=== PATIENT | female | born 1970 | race Caucasian/White ===

== ENCOUNTER 2018-02-04 00:37 | Outpatient (CLI) | payer MEDICAID, SELFPAY ==
--- NOTE | 2018-02-04 09:59 | DI.RAD_ITS ---
SYMPTOMS/DIAGNOSIS: LT HIP PAIN, M25.552, LT KNEE PAIN, M25.562 LEFT HIP AND PELVIS: Two views. No priors. Moderately severe narrowing of the superior joint space of the left hip is noted. Mild subchondral sclerosis and acetabulum scarring is also noted. The bones are intact and normally mineralized. There are mild degenerative changes of the sacroiliac joints bilaterally. The symphysis pubis is unremarkable. The soft tissues are unremarkable. IMPRESSION: Moderate degenerative changes of the left hip. LEFT KNEE: Three views. No priors. No bone or joint abnormality is identified. The soft tissues are unremarkable. IMPRESSION: Negative left knee.
== END 2018-02-04 00:57 ==
PROVIDERS: PCP Nurse Practitioner; Visit Provider Nurse Practitioner
DX: M25.552 Pain in left hip (principal); M16.12 Unilateral primary osteoarthritis, left hip; M25.562 Pain in left knee
CPT/HCPCS: 73562; 73502

== ENCOUNTER 2019-05-22 16:12 | Outpatient (REF) | payer MEDICAID, SELFPAY ==
--- NOTE | 2019-05-22 15:00 | PAPFT_PTH ---
PATIENT: Edward Stafford LOC: NCN #:[id number] AGE/SX: 48/F ROOM: RE05/22/[address]: Tiffany Mendoza : 1970 BED: DIS: 05/22/2019 SPEC #: [id number] RECD: 05/25/19 12:57 STATUS: KALEB RELeigh #: [id number] LAURA: 05/22/19 15:[address]: Tiffany Mendoza DEPT: [facility] Cytology RECD BY: Narda Sifuentes ENTERED: 05/25/19 12:57 SP TYPE: PAPFT OTHR DR: Nuzhat Johnson Tissues: 1 - CX/ENDOCX FOR PAP SMEARS Procedures: PAP THIN PREP/UVM Screening HPV DNA PROBE Comments: [id number]
== END 2019-05-22 16:32 ==
LOC: NCHCN 16:12
PROVIDERS: PCP Nurse Practitioner; Visit Provider Family Medicine
DX: Z12.4 Encounter for screening for malignant neoplasm of cervix (principal); Z01.419 Encounter for gynecological examination (general) (routine) without abnormal findings; Z00.00 Encounter for general adult medical examination without abnormal findings
CPT/HCPCS: 88142; 87624

== ENCOUNTER 2019-09-23 02:14 | Outpatient (CLI) | payer MEDICAID, SELFPAY ==
--- NOTE | 2019-09-23 15:38 | DI.MAMMO_ITS ---
EXAM: MAMMO SCREENING CLINICAL HISTORY: SCREENING Z12.31 TECHNIQUE: Mammograms were interpreted according to the usual protocol including computer analysis w [employer] CAD system, tomosynthesis and C-view imaging. COMPARISON: 2017 FINDINGS: The breasts are composed of heterogeneously dense fibroglandular densities, Breast Density category C . No suspicious masses or suspicious microcalcifications are seen. A biopsy marker clip is noted in th e upper outer quadrant of the left breast. There is a stable circumscribed nodule in the upper outer quadrant the left breast . No skin thickening or abnormal axillary lymph nodes are seen. There has been no significant change from prior exams. IMPRESSION: BI-RADS Category 2 - Benign Findings. Yearly screening mammography is recommended. Breast Density Category C, heterogeneously dense tissue which decreases the sensitivity of the mammog elliot. The mammogram demonstrates the patient's breast tissue is dense. Dense breast tissue is very common a nd is not abnormal but dense breast tissue can make it harder to find cancer on a mammogram. Also, de nse breast tissue may increase breast cancer risk. This information about the result of the mammogram report was provided to the patient to raise their awareness. Use this report when you speak with the patient about their risks for breast cancer, which includes their family history. At that time, you may recommend additional screening tests (Ultrasound or MRI) as they might be useful based on their r isk. A negative radiographic report should not delay biopsy if a dominant or clinically suspicious mass is present. Up to ten percent of cancers are not identified on mammography. A negative report may reinforce clinical impression. Adenosis and dense breasts may obscure an underlying neoplasm. False positive reports average 6 to 10%.
== END 2019-09-23 02:34 ==
PROVIDERS: PCP Nurse Practitioner; Visit Provider Family Medicine
DX: Z12.31 Encounter for screening mammogram for malignant neoplasm of breast (principal)
CPT/HCPCS: 77063; 77067

== ENCOUNTER → 2022-02-19 03:23 | Outpatient (CLI) | payer MEDICARE, MEDICAID, SELFPAY ==
--- NOTE | 2022-02-19 15:45 | DI.MAMMO_ITS ---
Exam(s) MAMMO SCREENING EXAM: MAMMO SCREENING CLINICAL HISTORY: SCREENING, Z12.31 TECHNIQUE: Mammograms were interpreted according to the usual protocol including computer analysis w [employer] CAD system, tomosynthesis and C-view imaging. COMPARISON: 2016 and 2019 FINDINGS: The breasts are composed of heterogeneously dense fibroglandular densities, Breast Density category C . Smoothly marginated nodule is again noted in the upper outer posterior left breast. There is an ghanshyam cent biopsy marker clip. No suspicious masses or suspicious microcalcifications are seen. No skin thickening or abnormal axillary lymph nodes are seen. There has been no significant change from prior exams. IMPRESSION: BI-RADS Cat 2 - Benign Findings. Yearly screening mammography is recommended. Breast Density Category C, heterogeneously Dense. The mammogram demonstrates the patient's breast tissue is dense. Dense breast tissue is very common a nd is not abnormal but dense breast tissue can make it harder to find cancer on a mammogram. Also, de nse breast tissue may increase breast cancer risk. This information about the result of the mammogram report was provided to the patient to raise their awareness. Use this report when you speak with the patient about their risks for breast cancer, which includes their family history. At that time, you may recommend additional screening tests (Ultrasound or MRI) as they might be useful based on their r isk. A negative radiographic report should not delay biopsy if a dominant or clinically suspicious mass is present. Up to ten percent of cancers are not identified on mammography. A negative report may reinforce clinical impression. Adenosis and dense breasts may obscure an underlying neoplasm. False positive reports average 6 to 10%.
== END ==
PROVIDERS: PCP Nurse Practitioner; Visit Provider Family Medicine
DX: Z12.31 Encounter for screening mammogram for malignant neoplasm of breast (principal); R92.8 Other abnormal and inconclusive findings on diagnostic imaging of breast
CPT/HCPCS: 77063; 77067

== ENCOUNTER 2022-02-26 15:01 | Outpatient (CLI) | payer MEDICARE, MEDICAID, SELFPAY ==
--- NOTE | 2022-02-26 14:51 | DI.RAD_ITS ---
Exam(s) XR HIP LT COMPLETE AP PELVIS EXAM: XR HIP LT COMPLETE AP PELVIS INDICATION: L hip pain. COMPARISON: CR XR hip LT complete AP pelvis from 02/04/2018 TECHNIQUE: 2D digital imaging was performed. Two views. FINDINGS: There is severe narrowing of the left hip joint space which appears slightly worsened when compared w ith the previous exam. There is periarticular spurring and sclerosis. The right hip joint space is well maintained. IMPRESSION: Severe degenerative changes of the left hip. DATA REPOSITORY: RADIATION DOSE DELIVERED:
== END 2022-02-26 15:02 | disposition home or self-care (01) ==
LOC: DIORS 15:02
PROVIDERS: PCP Nurse Practitioner Family; Referring Provider Nurse Practitioner Family; Visit Provider Physician Assistant
DX: M16.12 Unilateral primary osteoarthritis, left hip
CPT/HCPCS: 99203; 73502

== ENCOUNTER → 2022-03-08 03:12 | Outpatient (CLI) | payer MEDICARE, MEDICAID, SELFPAY ==
--- NOTE | 2022-03-08 07:45 | DI.RAD_ITS ---
Exam(s) RF JOINT INJECTION FLUORO GUID EXAM: RF JOINT INJECTION FLUORO GUID CLINICAL HISTORY: L HIP INJ UNDER FLUORO, primary OA lt hip, M16.12 TECHNIQUE: 2D and realtime digital imaging was performed. COMPARISON: No exams were available for comparison FINDINGS: Fluoroscopy is utilized by Dr. Kidd during left hip injection. Hard copy confirms intra-articula r injection. IMPRESSION: RADIATION DOSE DELIVERED: Ka,r=5.21 mGy Total DLP
[2022-03-08] MEDS: methylPREDNISolone ACETATE 80 MG/ML VIAL IM (15:05)
[2022-03-08] MEDS: Bupivacaine 0.5% Pres-Free 10 ML VIAL 8 ML IJ (15:06)
--- NOTE | 2022-03-08 21:27 | W.PROCNOTE ---
Date of service: 03/08/22 Time of Service: 14:40 Procedure Note Date of procedure: 03/08/22 Procedure: Left Hip Injection with Fluoroscopic Guidance Surgeon/Proceduralist/Physician: Michael Kidd Procedure Diagnosis: Left Hip Osteoarthritis Procedure Indications: Edward has had persistent pain of the LEFT hip and groin. Noninvasive measures have been tried. To serve as both diagnostic and therapeutic, an injection under fluoroscopy was recommended. I had discussed the risks of the procedure and the patient elected to proceed. Procedure Description: Edward was greeted in the flouroscopy room. The correct side was identified and the consent was reviewed with the patient and signed. The patient was then placed in the supine position on the fluoroscopy table. The LEFT hip was then prepped with Chloraprep. The anterolateral injection starting point was identiifed by bony landmarks and fluoroscopy. The skin and soft tissue in the tract of the injection was anesthetized with 1% Lidocaine. A spinal needle was then inserted deep into the hip joint at the level of the lateral femoral neck under fluoroscopic guidance. A small amount of Omnipaque solution was injected to confirm intraarticular placement. Once confirmed, the hip was injected with 5cc of 0.5% Bupivicaine and 80mg of Depo-Medrol. A bandaid was placed on the injection site. The patient tolerated the procedure well and noted improvement in pre-injection pain.
== END ==
PROVIDERS: PCP Family Medicine; Visit Provider Student in an Organized Health Care Education/Training Program
DX: M16.12 Unilateral primary osteoarthritis, left hip (principal); M25.552 Pain in left hip
CPT/HCPCS: 20610; 77002; J1040

== ENCOUNTER 2022-05-28 02:32 | Outpatient (CLI) | payer MEDICARE, MEDICAID, SELFPAY ==
[2022-05-28 14:42] LABS: HCT 41.3 % (36.0-46.0); HGB 13.9 g/dL (11.2-15.7); MCH 30.5 pg (27.0-33.0); MCHC 33.7 % (32.0-36.0); MCV 91 fL (80-95); MPV 9.6 fL (8.0-11.0); Platelet Count 287 10^3/uL (130-400); RBC 4.55 10^6/uL (3.93-5.22); RDW 13.2 % (11.7-14.6); RDW-SD 44.6 fL; WBC 6.81 10^3/uL (4.4-10.8)
[2022-05-28 15:18] LABS: Anion Gap 7.1 mmol/L (3-11); BUN 13 mg/dL (7-18); CO2 30.9 mmol/L (21.0-32.0); CREATININE 0.9 mg/dL (0.55-1.02); Calcium 9.6 mg/dL (8.5-10.1); Chloride 103 mmol/L (98-107); Estimated GFR 77.88 (mL/min/1.73m2); Glucose 97 mg/dL (74-106); Potassium 3.9 mmol/L (3.5-5.1); Sodium 141 mmol/L (136-145)
== END 2022-05-28 02:33 | disposition home or self-care (01) ==
LOC: LBO 02:33
PROVIDERS: PCP Family Medicine; Visit Provider Student in an Organized Health Care Education/Training Program
DX: M16.12 Unilateral primary osteoarthritis, left hip (principal); Z01.818 Encounter for other preprocedural examination
CPT/HCPCS: 36415; 80048; 85027

== ENCOUNTER 2022-06-08 05:52 | Day surgery (SDC) | payer MEDICARE, MEDICAID, SELFPAY ==
[2022-06-08] VITALS (9 sets, daily range): BP systolic 86–146; BP diastolic 32–75; PULSE 59–71; RESP 12–19; TEMP 36.6; O2SAT 97–100; BMI 27.1
--- NOTE | 2022-06-08 06:22 | ANES.PREOP_ITS ---
General Info Date of Service Date Performed: 06/08/22 Height: 5 ft 3 in Weight: 69.4 kg Body Mass Index (BMI): 27.1 Surgical Procedure: Operation Date: 06/08/22 07:50 Proposed Procedure Side Surgeon p Hip Total Hip Anterior Left Michael Kidd MD Meds Allergies and Home Medications Allergies Allergy/AdvReac Type Severity Reaction Status Date / Time meperidine HCl [From Demerol] Allergy rash up Verified 06/08/22 06:15 vein Home Medication Medication Instructions Recorded acetaminophen 500 mg tablet 1,000 mg PO Q8H PRN pain #90 tabs 06/07/22 aspirin 81 mg tablet,delayed 81 mg PO BID #60 tabs 06/07/22 release celecoxib 200 mg capsule 200 mg PO BID PRN pain #60 caps 06/07/22 dexamethasone 4 mg tablet 4 mg PO DAILY #2 tabs 06/07/22 oxycodone 5 mg tablet 5 mg PO Q4H #12 tabs 06/07/22 pantoprazole 40 mg tablet,delayed 40 mg PO DAILY #30 tabs 06/07/22 release Current Visit Medications: Current Medications Generic Name Dose Route Start Last Admin Trade Name Freq PRN Reason Stop Dose Admin Acetaminophen 1,000 mg 06/08/22 06:00 Acetaminophen 500 Mg Tab PO 06/08/22 16:00 PREOP HERNANDEZ Celecoxib 400 mg 06/08/22 06:00 Celecoxib 200 Mg Cap PO 06/08/22 16:00 PREOP HERNANDEZ Tranexamic Acid 1,000 mg/ 60 mls @ 360 mls/hr 06/08/22 06:00 Sodium Chloride IV 06/08/22 16:00 PREOP HERNANDEZ Ringer's Solution 1,000 mls @ 80 mls/hr 06/08/22 06:00 IV 06/08/22 23:59 INFUSION HERNANDEZ Cefazolin Sodium/Dextrose 2 gm in 50 mls @ 100 mls/hr 06/08/22 06:00 Ancef Duplex IVPB 06/08/22 23:59 PREOP HERNANDEZ IV Miscellaneous Supplies 1 each 06/08/22 06:00 Iv Access IV 06/08/22 23:59 DIRECTED HERNANDEZ Sodium Chloride 0 ml 06/08/22 06:00 Normal Saline Flush 10 Ml Syr IV 06/08/22 23:59 PRN PRN Sodium Chloride 0 ml 06/08/22 06:00 Normal Saline 10 Ml Vial IJ 06/08/22 23:59 DIRECTED PRN Sterile Water 0 ml 06/08/22 06:00 Water,Injection,Sterile 10 Ml Vial IJ 06/08/22 23:59 DIRECTED PRN PFSH Active Problems Active Problems: Problem Status Onset Code Abnormal auditory perception of both ears 04/25/15 H93.293 Sensorineural hearing loss of combined sites, bilateral 01/25/15 H90.3 Asymmetrical sensorineural hearing loss of both ears 04/14/13 H90.3 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 Primary osteoarthritis of left hip M16.12 Medical History Medical History Hearing impairment Left breast mass Retinitis pigmentosa Usher syndrome Surgical History Surgical History (Updated 06/08/22 @ 06:14 by Andres Lincoln) Biopsy of breast (02/15/17) left, ultrasound guided, nodular dense fibrosis History of tubal ligation Tobacco Smoking/Tobacco Use Status: Never Alcohol Alcohol Intake: current Substance Use Substance use: Occasionally Substance use type: marijuana Vital Signs and Lab Results Vital Signs Most Recent Vital Signs in EMR: Temp Pulse Resp BP Pulse Ox 36.6 C 71 16 126/66 100 06/08/22 06:16 06/08/22 06:16 06/08/22 06:16 06/08/22 06:16 06/08/22 06:16 Lab Results Blood Type / Crossmatch: No Data to Display Complete Blood Count: White Blood Count 6.81 10^3/uL (4.4-10.8) 05/28/22 14:30 Red Blood Count 4.55 10^6/uL (3.93-5.22) 05/28/22 14:30 Hemoglobin 13.9 g/dL (11.2-15.7) 05/28/22 14:30 Hematocrit 41.3 % (36.0-46.0) 05/28/22 14:30 Platelet Count 287 10^3/uL (130-400) 05/28/22 14:30 Complete Metabolic Panel: Sodium 141 mmol/L (136-145) 05/28/22 14:30 Potassium 3.9 mmol/L (3.5-5.1) 05/28/22 14:30 Chloride 103 mmol/L (98-107) 05/28/22 14:30 Carbon Dioxide 30.9 mmol/L (21.0-32.0) 05/28/22 14:30 BUN 13 mg/dL (7-18) 05/28/22 14:30 Creatinine 0.9 mg/dL (0.55-1.02) 05/28/22 14:30 Est GFR (CKD-EPI 2020) 77.88 (mL/min/1.73m2) 05/28/22 14:30 Calcium 9.6 mg/dL (8.5-10.1) 05/28/22 14:30 Glucose 97 mg/dL (74-106) 05/28/22 14:30 Liver Function Panel: No Data to Display Coagulation Panel: 2 No Data to Display Cardiac Panel: No Data to Display Arterial Blood Gas: No Data to Display Venous Blood Gas: No Data to Display Pancreas Panel: No Data to Display Thyroid Panel: No Data to Display Infectious Disease: No Data to Display Blood Cultures: No Data to Display Toxicology Panel: No Data to Display Panel: No Data to Display Anesthesia Assessment and Plan Anesthesia History Personal History: No History of Anesthesia Complications Family History: No Family History of Anesthesia Complications Exercise Tolerance Exercise Tolerance: Metabolic Equivalents>4 Cardiac & Pulmonary Exam Cardiac Exam: Normal S1/S2 Heart Sounds Pulmonary Exam: Clear Bilateral Breath Sounds Implantable Cardiac Device Does patient have a Pacemaker or an ICD?: No Airway Exam Known Difficult Airway: No Mallampati Class: 1 Mouth Opening: Normal (> 3cm) Thyromental Distance: Greater than 3 cm Neck Range of Motion: Full ROM Neck Circumference: Normal Teeth Condition: Normal Dentition ASA Classification ASA Score: ASA 2 Emergency Case?: No NPO Status NPO Status: NPO Clears >2 hours, Solids >8 hours Status Status: Not Relevant due to Medical History Anesthesia Plan Resuscitation Status: Full Code Anesthesia Technique: Spinal Anesthesia Airway Planned: Natural Airway Monitors Used: Standard Monitors Preoperative Comments:: 51 yo female for JER. Sig PMHx: Usher syndrome, never smoker tobacco, occ cannabis/etoh, denies major. Plan: spinal.
[2022-06-08] MEDS: Acetaminophen 500 MG TAB 1000 MG PO (06:39)
[2022-06-08] MEDS: Celecoxib 200 MG CAP 400 MG PO (06:39)
[2022-06-08] MEDS: Lactated Ringers 1,000 ML 80 ML IV (06:51)
--- NOTE | 2022-06-08 07:14 | W.PM.DSUDISC ---
Date of service: 06/08/22 Time of Service: 07:13 Discharge Plan Disposition Patient Disposition: Home Condition: Good Discharge Details Reason For Visit: Left Hip DJD Attending Provider: Michael Kidd Primary Care Provider: Tiffany Mendoza Home Meds and New Rx's Prescriptions: New acetaminophen 500 mg tablet 1,000 mg PO Q8H PRN (Reason: pain) Qty: 90 3RF aspirin 81 mg tablet,delayed release (DR/EC) 81 mg PO BID Qty: 60 0RF celecoxib 200 mg capsule 200 mg PO BID PRN (Reason: pain) Qty: 60 1RF pantoprazole 40 mg tablet,delayed release (DR/EC) 40 mg PO DAILY Qty: 30 0RF dexamethasone 4 mg tablet 4 mg PO DAILY Qty: 2 0RF Rx Instructions: Starting Post-Operative Day #1 (Day after surgery) oxycodone 5 mg tablet 5 mg PO Q4H Qty: 12 0RF Discharge Instructions Additional Instructions: Total Hip Discharge Instructions Activity: The most important activity is to walk. You should try to take short walks a few times a day. You have no restrictions on movement or positioning, but do not try to force what you do. You will find some stiffness and weakness with hip flexion (lifting your knee). Do not try to strengthen this too early, continue to practice walking and stairs and this will come. - Outpatient physical therapy can be helpful to help return you to a normal gait and improve your flexibility and strength. This can start around 2 weeks. For some patients, it?s not necessary. Usually this is determined at the time of discharge or at the first post-operative visit. - You should wear the AARON hose on both legs for 2 weeks. Dressing: Keep the surgical dressing in place for at least one week. After the first week it may be removed and replace with light gauze and tape or nothing. It may get wet after 3 days but avoid soaking the dressing. If it gets wet, just lightly pat dry. It is important to always keep some gauze between skin folds, especially when you are sitting. Spend some time with the wound exposed when you are lying flat as the incision does wrinkle onto itself. Medications: - You should take Tylenol and an anti-inflammatory Celebrex as your primary pain control medications. If the Celebrex is too expensive or not covered, please call the office for another alternative (Advil/Ibuprofen or Naproxen/Aleve). - You have been prescribed a stronger pain medication Oxycodone for breakthrough pain, take as needed as prescribed. - You have also been prescribed a stomach acid reduction agent Pantoprozole to help reduce stomach acid and reflux. - You have also been prescribed Decadron to help with post-operative nausea and pain. You will take this for two days starting tomorrow. - You will be taking Aspirin 81mg twice a day for DVT prevention unless instructed otherwise. - If you have constipation you should take Colace or Miralax (both [id number]). It takes most people 3-4 days to have a bowel movement. Follow-up: 2 weeks If you have any acute concerns or questions, please do not hesitate to contact the office at [phone]. You may contact Dr. Kidd with any questions after hours through the hospital at [phone] or on his cell phone at [phone]. Equipment/Supplies: Walker Activity:: Activity as Tolerated Remove Dressings/Wound Care:: Do Not Remove Shower/Bathe:: Cover Diet:: As Tolerated Discharge Orders Discharge Orders: Discharge Order (Routine); Ordered 06/08/22 Ordered By: Michael Kidd DS: Diagnosis Discharge Diagnosis (1) Primary osteoarthritis of left hip: Status: Acute
[2022-06-08] MEDS: ceFAZolin 2 GM/50 ML BAG IVPB (07:30)
--- NOTE | 2022-06-08 08:37 | DI.RAD_ITS ---
Exam(s) XR HIP LT IN OR EXAM: XR HIP LT IN OR CLINICAL HISTORY: total hip. TECHNIQUE: 2D digital imaging was performed. COMPARISON: No exams were available for comparison FINDINGS: Fluoroscopy was provided during hip arthroplasty. See procedure report for details. Total fluoroscopy time 26.1 seconds IMPRESSION: Radiation exposure index/cumulative radiation dose: gene Rondon= 2.0108 mGy DATA REPOSITORY: RADIATION DOSE DELIVERED:
[2022-06-08] MEDS: ePHEDrine 25 MG/5 ML Syringe IM (09:40)
[2022-06-08] MEDS: HYDROmorphone 2 MG/ML SYR IVP ×2 (09:55→10:05)
--- NOTE | 2022-06-08 10:26 | W.ANESPOSTOP ---
Postoperative Evaluation Date, Time and Location Date Performed: 06/08/22 Time Performed: 10:26 Patient Location: PACU Vital Signs Most Recent Imported Vital Signs: Most Recent Vital Signs Temp Pulse Resp BP Pulse Ox 36.6 C 60 13 111/59 L 100 06/08/22 10:23 06/08/22 10:23 06/08/22 10:23 06/08/22 10:06/08/22 10:23 Pain Score Most Recent Pain Score: Most Recent Pain Score Pain Level 2 06/08/22 10:23 Assessment Mental Status: Awake (Alert & Oriented to Patient Baseline) Airway and Respiratory Function: Patent airway with normal (patient baseline) respiratory exam Cardiovascular Function: Hemodynamically Stable (receiving intermittent ephedrine. ) Hydration Status: Adequately Hydrated Nausea & Vomiting: No Nausea or Vomiting Pain: Pain is tolerable per patient Peripheral Nerve Block: Patient did not receive a nerve block
--- NOTE | 2022-06-08 14:09 | IN_ITS ---
PT Notes Visit Reasons: Left Hip DJD Inpatient Physical Therapy Evaluation Date: June 08, 2022 Referring Doctor: Dr. Michael Kidd PT Orders: PT CONSULT: Status post left total hip arthroplasty Precautions: Weightbearing as tolerated Patient Profile/Admitting Diagnosis: Patient is a 51-year-old female referred for evaluation and treatment planning status post left total hip arthroplasty performed on this date by Dr. Michael Kidd. Patient states she came out of anesthesia well. Is holding up well with regards to pain management. Is slated to be discharged home. Her daughter will be picking her up. She states that her daughter and grandson live with her. Her daughter will be helping her over the next couple weeks recovering from her hip replacement. PMHX: PFSH All Active Problems?(Updated 02/26/22 @ 15:08 by LINO Salguero) Primary osteoarthritis of left hip (Acute) Pigmentary retinal dystrophy (Acute) Impairment of speech discrimination (Acute) Asymmetrical sensorineural hearing loss of both ears (Acute 04/14/13) Sensorineural hearing loss of combined sites, bilateral (Chronic 01/25/15) Abnormal auditory perception of both ears (Acute 04/25/15) Medical History?(Updated 02/26/22 @ 15:08 by LINO Salguero) Hearing impairment Left breast mass Retinitis pigmentosa Usher syndrome Surgical History?(Updated 01/22/18 @ 14:35 by [employer] MD) Biopsy of breast (02/15/17) left, ultrasound guided, nodular dense fibrosis Social History/Home Situation: Lives in single level dwelling with daughter and grandson. 4 stairs upon entry with railing on her left hand. Employed at [employer] Current Functional Limitations: Out of work, difficulty with functional mobility, community distance ambulation, prolonged standing greater than 10 minutes, reciprocal stair negotiation. Equipment Owned/DME: Front wheeled walker Subjective: Patient surprised that her hip feels as good as it does. States she is not experiencing too much pain. Rates her symptoms 3/10 located to the anterior lateral aspect of her left hip. Objective: General Observation: Patient standing with nursing upon arrival of PT evaluation. Standing with front wheeled walker. Mild anterior flexed posture. IV port and right dorsal forearm. Mental Status: Alert and oriented x3 Pain: 3/10 ROM: Right Upper Extremity: Within functional limits Left Upper Extremity: Within functional limits Right Lower Extremity: Within functional limits Left Lower Extremity: Right hip flexion 90 degrees observed in sitting, hip abduction 20 active, 30 degrees active assisted, external rotation 25 degrees in sitting. Internal rotation not tested. Knee flexion and extension within normal limits Strength: Right Upper Extremity: 4+/5 throughout glenohumeral joint flexion, abduction, internal and external rotation, biceps and triceps. Good frit mixer and burner Left Upper Extremity: 4+/5 throughout upper extremity glenohumeral joint flexion, abduction, internal and external rotation, biceps and triceps. Good frit mixer and burner Right Lower Extremity: Hip flexion 4+/5, quads 4+/5, hamstrings 4+/5 Left Lower Extremity: Hip flexion not tested, hip abduction 4 -/5 in sitting, hip adduction 4/5 in sitting, quad patient performs long arc quad to 0 degrees extension. Hamstring 4/5. Ankle dorsiflexion and plantarflexion 4+/5 Sensation: Patient reports intact sensation light touch throughout bilateral lower extremities. Bed Mobility/Transfers: Sit to stand standby assist to front wheel walker Stand to sit standby assist from front wheel walker Gait: Patient ambulates 30 feet x 2 with front wheel walker contact-guard x1 from room to mini practice stair set. Performs up and downward negotiation of stairs using step to pattern with verbal cues for leading with uninvolved leg up and descending leading with involved leg contact-guard x1. Balance: Static Sitting: Good Dynamic Sitting: Good Static Standing: Good Dynamic Standing: Fair Special Tests: Mobility Limitations Standardized Measure [facility] AM-PAC 6 clicks Basic Mobility Inpatient Short Form: Raw Score: 23 Standardized Score: [] CMS Score: 11% Informed Consent/Education: Patient instructed in purpose of PT consult and plan of care. Assessment: Patient is a 51year old female referred to physical therapy services with the diagnosis of status post left total hip arthroplasty above diagnosis. Patient presents with clinical signs and symptoms consistent with [], as demonstrated by the following impairment level findings: Joint mobility, motor function, muscle performance and range of motion associated with bony arthroplasty. Impairments are contributing to the following functional limitations: AMPAC score and current functional limitations listed above. Patient tolerated ambulation and stair negotiation well with no complaints of pain or significant limitation. Do feel she is appropriate for discharge home and is safe with her ambulation and functional mobility. Patient is assessed as a X Low [id number] [] Moderate 89430 [] High [id number] complexity based on the following: History: Per EMR Examination: Per EMR Presentation: Stable Decision Making: low (AM-PAC) Goals: Goals not established as patient is being discharged to home. Patient education: Therapeutic procedure 70310 X1 educated in home program exercises for heel slides in supine, quad sets, glutes sets, ankle pumps and encouraged to walk frequently throughout the day. Was issued handout. Plan of Care/Treatment Plan: Discharge to home. DISCHARGE RECOMMENDATIONS: [] Home with no services [] [] Home with services [specify] X Home with outpatient PT [] SNF for continued rehabilitation [] [] Skilled Nursing Care [] [] SNF versus LTC based on ability to participate and progress [] TREATMENT CODE/TIME: Initial evaluation 10674 25 minutes 1:00 to 125 direct one-on-one care therapeutic procedure [id number] X1. Thanh Chavarria PT, DPT Disclaimer: This note was created using [employer] voice recognition software. It was reviewed for major content. However, there may be multiple small discrepancies and errors due to the voice recognition aspects of the software.
--- NOTE | 2022-06-08 14:58 | ROE_ITS ---
Date of service: 06/08/22 Time of Service: 09:00 Operative Note Operative Note DATE OF PROCEDURE: 06/08/22 PRE-OP DIAGNOSIS: Left Hip Osteoarthritis POST-OP DIAGNOSIS: same PROCEDURE: Left Anterior Total Hip Arthroplasty with Intraoperative Navigation SURGEON: Michael Kidd MANAGER CARDIAC: Cinthia Napoles ANESTHESIA TYPE: Spinal Refer to Anesthesia Record ESTIMATED BLOOD LOSS: 300 PATHOLOGY: none sent TOURNIQUET TIME: 0 COMPLICATIONS: None Patient was transported to: PACU Patient's condition: stable Implants: 1. Depuy [place] Acetabular Component, 50mm 2. Depuy Acetabular Liner, [id number] 3. Depuy Corail Low Neck Collared Femoral Stem, Size 12 4. Depuy Altrx Ceramic Femoral Head, Size 32+5mm Indications: I have seen Edward in clinic for symptoms of hip arthritis, confirmed with radiographic findings. She has exhausted nonoperative methods and was having significant limitations in daily function and desired better function and less pain. I discussed the technical details of a hip replacement. I explained the risks of the procedure to include, but not limited to, bleeding, infection, pain, stiffness, fracture, damage to nerves and vessels, damage to muscles and tendons, loosening, instability, leg length inequality, need for repeat procedure, blood clot and cardiopulmonary demise. Despite these risks, Edward elected to proceed. Findings: There was significant signs of arthritis throughout the hip. There was abudant synovitis Procedure Description: Edward was greeted in the preoperative holding area where the correct side was identified and marked. The consent was reviewed with the patient and signed. The history and physical was updated. All questions were answered. Edward was taken back to the operating room. A spinal anesthestic was then administered. The feet were wrapped with cast padding and Coban and then placed into the boot liners and then into the boots. Care was taken to protect the skin and make sure the heels were fully down and the boots were stable. The patient was then positioned onto the HANA table. Both legs were held in a neutral position. SCDs were applied. The patient was then slid down onto a peroneal post. Prophylactic antibiotics in the form of Cefazolin were administered. 1g of Tranxemic Acid was given intravenously within 30 minutes of incision. The left leg was then prepped with Chloraprep and draped in a standard fashion. A second prep with Chloraprep was performed prior to placement of a shower-curtain type drape with Iodine impregnated skin protection. A timeout to confirm correct identity, side and site, procedure, allergies, anesthesia, and medical concerns was performed. An obliquely oriented incision was made starting lateral to the ASIS and running distal over the Tensor Fascia Radha (TFL) muscle belly toward the fibular head, approximately 10cm. The skin and soft tissue was dissected sharply, through Donald?s fascia, and to the fascia of the TFL. At this point, there was obvious patient movement and changes to vitals suggesting that the spinal was not successful and she was thus transitioned to a general anesthetic. Now with the fascia and superior border of the IT band identified, the fascia was incised with a new knife just above any perforators from the IT band. The TFL muscle belly was bluntly dissected away from the fascia and moved laterally. The fat between TFL and rectus was identified to ensure the dissection was not within the TFL. Blunt dissection created space between abductors and the capsule and retractor was placed over the lateral femoral neck. The fibers of the rectus femoris tendon were identified and these were freed from the anterior capsule. A second cobra retractor was placed around the medial femoral neck. The TFL was further retracted laterally to show the deep fascia. Careful dissection through this layer identified three main crossing vessels of the lateral femoral circumflex. These were cauterized in multiple locations and then cut without any noticeable bleeding. The TFL was further released bluntly from the deep fascia to expose anterior hip capsule and fat The Kayden orthopaedic retractor was then placed beneath the TFL and against sartorius and medial soft tissues to protect and retract the soft tissues. A T-capsulotomy was then performed starting at the superior lateral acetabulum and moving distally to the intertrochanteric ridge. These capsular flaps were tagged with a No. 1 Ethibond and elevated from within. The capsular flaps were released to the shoulder of the lateral neck and to the lesser trochanter to give excellent visualization of the proximal femur. A neck osteotomy was performed using an oscillating saw based on preoperative templates. This cut started in the shoulder and of the lateral neck and exited medially. The saw was at all times directed medially to avoid injury to the greater trochanter. Gross traction was applied to the leg and the osteotomy opened. The femoral head was removed with a corkscrew, making sure to protect the TFL on its exit. Traction was released after head removal. This was measured on the back table to determine the starting reamer size. Portions of the rectus obscuring visualization were minimally elevated off the superior acetabulum. An anterior retractor was placed over the anterior wall between capsule and labrum and attached to the Gripper retraction system. The femur was rotated to 90 degrees and medial capsule was fully released until the lesser trochanter was palpable and visible; the femur was returned to 30 degrees. A posterior retractor was placed similarly between capsule and labrum. This provided excellent visualization. The contents of the cotyloid fossa were removed with electrocautery and the labrum was removed with a knife. There was significant chondromalacia of the superior acetabulum. There was also significant synovitis within the hip and this was debrided sharply as well as with a rongeur. Acetabular reaming began with a 46mm reamer. This first reaming was directed anterior to posterior and medial to get down to the true floor. This was inspected and reamed until the true floor was reached. The anterior retractor was then released and entry and exit was provided by traction on the capsular flaps. I then reamed sequentially up to a 50mm reamer where good fit was obtained. The larger reamers were oriented based on anatomical reference of the anterior and lateral rivera to ensure proper abduction and anteversion. Positioning and size was confirmed with the fluoroscopy. A 50mm Depuy [place] acetabular component was selected. The acetabulum was reamed around the periphery with the selected acetabular size to prevent a rim fit. The deep tissues were irrigated. The acetabular component was then impacted in a position of about 40-45 degrees of abduction and 15-20 degrees of anteversion, using the patient?s anatomy as the ultimate landmark. Fluoroscopy was used to confirm this. There was excellent retort fireman of the acetabular component and the inserting handle was removed. The acetabular liner, Depuy [id number] polyethylene liner, was inserted and lined up with the tines of the acetabular component. There was no soft tissue interposition. The liner was then impacted into position and confirmed to be well-seated. A portion of the cristian-articular cocktail was then injected around the acetabulum into the capsule and periosteum. This cocktail consisted of 123mg of Ropivacaine, 0.25mg of Epinephrine, 0.04mg of Clonidine, and 15mg of Ke torolac, diluted to 50cc. The leg was rotated to 120 degrees. Any remaining medial capsule was released until the lesser trochanter was easily palpable. A retractor was placed medially. The lateral capsule was further released into the shoulder to allow access to the greater trochanter. A Muhammad retractor was placed over the greater trochanter which allowed the trochanter to flip in front of the capsule for excellent exposure. The leg was brought down into maximal extension and 20 degrees of adduction while ensuring there was no impingement on the acetabulum. Any remnant capsule within the trochanter was released. Piriformis and obturator externis were identified and protected. There was excellent access to the proximal femur. The lateral neck remnant was removed with a rongeur. A blunt canal probe was used to identify the canal and trajectory for later broaching. A box osteotome initiated the broach course. A small curved rasp and a curved curette were used to work laterally. Broaching then began with a size 8 Corail broach. This was inserted manually around the trochanter and into the canal before mallet blows. The broach was seated to the neck cut level based on the neck cut and the preoperative template. Sequential broaching was continued with the Synforase pneumatic broaching device until a tight fit was obtained with good rotational control of the femur. A trial short neck was inserted along with a +5 trial head. The leg was brought out of extension and adduction and then reduced with traction and internal rotation. The leg was stable anteriorly in a position of 30 degrees of extension and 90 degrees of external rotation. Fluoroscopy was used to ensure there was no fracture and the stem was seated well. Leg lengths were checked with an AP pelvis and pelvic reference points. [employer] navigation system was used to confirm appropriate positioning and leg length and offset. Once content with the desired offset and leg lengths, the leg was brought back into extension, external rotation and adduction. The periosteum and surrounding tissue was injected with remaining portion of the cristian-articular cocktail. The proximal femur was irrigated as well as the deep tissues. The Depuy Corail short neck collared stem, size 12, was then manually inserted into the proximal femur making sure to control rotation. It was then malleted into position with light blows, giving breaks to allow bone expansion and decrease risk of fracture. The selected Depuy Altrx Ceramic Head, size 32+5mm, was then placed onto the clean and dry trunnion and secured with impaction onto the tapered fit. The leg was brought back out of extension and adduction and reduced with traction and internal rotation. Stability was confirmed with no shuck at 90 degrees of external rotation and 30 degrees of extension. No impingement through range of motion arc. Final x-ray images were obtained with fluoroscopy to confirm adequate positioning and no intraoperative fracture. The deep tissues were thoroughly irrigated with Surgiphor, betadine solution. This was allowed to sit in the wound for 3 minutes before being thoroughly irrigated out with normal saline. The capsule was then reapproximated with the previously placed Ethibond sutures. The TFL fascia was finally closed with a No. 2 Stratafix, barbed suture. Deep tissues were then reapproximated with 0 Vicryl and a running 2-0 Vicryl. The skin was closed with a running 4-0 Monocryl in a subcuticular fashion. This was reinforced with skin glue. A Mepilex silver dressing was applied. At the end of the case, all counts were correct. Edward was transferred to the hospital bed without difficulty and suffering no apparent complication. Edward has a good prognosis. Physical therapy will start today and without restrictions, weight-bearing as tolerated. Aspirin 81mg BID will be used for DVT prophylaxis.
--- NOTE | 2022-06-13 09:44 | INDS_ITS ---
Date of service: 06/13/22 PT Notes Visit Reasons: Left Hip DJD Inpatient Physical Therapy Discharge Summary Date:?06/13/2022 Dates of Service: 06/08/2022 only This is a clinical summary of care provided for the duration of dates listed above. No charge was made in the completion of this documentation. Referring Doctor: Dr. Michael Kidd PT Orders: PT CONSULT: Status post left total hip arthroplasty Precautions: Weight bearing as tolerated Patient Profile/Admitting Diagnosis:??? Patient is a 51-year-old female referred for evaluation and treatment planning status post left total hip arthroplasty performed on this date by Dr. Michael Kidd.? Patient states she came out of anesthesia well.? Is holding up well with regards to pain management.? Is slated to be discharged home.? Her daughter will be picking her up.? She states that her daughter and grandson live with her.? Her daughter will be helping her over the next couple weeks recovering from her hip replacement. 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 4 stairs upon entry with railing on her left hand. ? Employed at [employer] Current Functional Limitations: Out of work, difficulty with functional mobility, community distance ambulation, prolonged standing greater than 10 minutes, reciprocal stair negotiation. Equipment Owned/DME: Front wheeled walker Subjective:? NT. See most recent OIL FURNACE INSTALLER notes. Surgery would just answer Objective:? General Observation: He has Mental Status: NT. See most recent OIL FURNACE INSTALLER notes. Pain: I have a progress note to Ce today while she is due tomorrow but I would rather because it is to moderately busy ? ROM: Right Upper Extremity: Within functional limits? Left Upper Extremity: Within functional limits Right Lower Extremity: Within functional limits Left Lower Extremity: Right hip flexion 90 degrees observed in sitting, hip abduction 20 active, 30 degrees active assisted, external rotation 25 degrees in sitting.? Internal rotation not tested.? Knee flexion and extension within normal limits Strength: Right Upper Extremity: 4+/5 throughout glenohumeral joint flexion, abduction, internal and external rotation, biceps and triceps.? 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 Hamstring 4/5.? Ankle dorsiflexion and plantarflexion 4+/5 Sensation:? Patient reports intact sensation light touch throughout bilateral lower extremities. Bed Mobility/Transfers:?? Sit to stand standby assist to front wheel walker Stand to sit standby assist from front wheel walker Gait: Patient ambulates 30 feet x 2 with front wheel walker contact-guard x1 from room to mini practice stair set.? Performs up and downward negotiation of stairs using step to pattern with verbal cues for leading with uninvolved leg up and descending leading with involved leg contact-guard x1. Balance:? Static Sitting: Good? Dynamic Sitting: Good Static Standing: ? Good? Dynamic Standing: Fair Assessment:?? Patient is a 51year old female referred to physical therapy services with the diagnosis of status post left total hip arthroplasty above diagnosis.? Patient presents with clinical signs and symptoms consistent with [], as demonstrated by the following impairment level findings: Joint mobility, motor function, muscle performance and range of motion associated with bony arthroplasty.? Impairments are contributing to the following functional limitations: AMPAC score and current functional limitations listed above.? Patient tolerated ambulation and stair negotiation well with no complaints of pain or significant limitation.? Do feel she is appropriate for discharge home and is safe with her ambulation and functional mobility. ? Goals:? Goals not established as patient is being discharged to home. ? DISCHARGE RECOMMENDATIONS:? [] ? Home with no services [] [] ? Home with services [specify] X ? Home with outpatient PT?? [] ? SNF for continued rehabilitation [] [] ? [facility] [] [] ? SNF versus LTC based on ability to participate and progress [] TREATMENT CODE/TIME: NC Thank you for the opportunity to participate in the care of this patient. Kecia Hanson PT, DPT, CLT [facility] [place], [place]
== END 2022-06-08 14:12 | disposition home or self-care (01) ==
PROVIDERS: PCP Family Medicine; Visit Provider Student in an Organized Health Care Education/Training Program
PROC: (CPT 27130; principal; 2022-06-08 07:30)
DX: M16.12 Unilateral primary osteoarthritis, left hip (principal); L10.4 Pemphigus erythematosus
CPT/HCPCS: 20985; 27130; C1776; 97110; 97161; 73501; J0690; J1100; J2250; J2405; J2704

== ENCOUNTER 2022-06-21 11:06 | Outpatient (CLI) | payer MEDICARE, MEDICAID, SELFPAY ==
--- NOTE | 2022-06-21 08:30 | DI.RAD_ITS ---
Exam(s) XR HIP LT COMPLETE AP PELVIS EXAM: XR HIP LT COMPLETE AP PELVIS INDICATION: 1st post op L JER. COMPARISON: CR XR HIP LT COMPLETE AP PELVIS from 02/26/2022 RF RF JOINT INJECTION FLUORO GUID from 03/08/2022 XA XR HIP LT IN OR from 06/08/2022 TECHNIQUE: 2D digital imaging was performed. Three views. FINDINGS: A left hip prosthesis is noted, unchanged in alignment. No abnormal surrounding bony lucencies. Rig ht hip is unremarkable. Mild degenerative changes noted in the SI joints. IMPRESSION: Stable appearance of left hip prosthesis. DATA REPOSITORY: RADIATION DOSE DELIVERED:
== END 2022-06-21 11:07 | disposition home or self-care (01) ==
LOC: DIORS 11:07
PROVIDERS: PCP Family Medicine; Referring Provider Family Medicine; Visit Provider Student in an Organized Health Care Education/Training Program
DX: Z96.642 Presence of left artificial hip joint (principal); Z47.1 Aftercare following joint replacement surgery
CPT/HCPCS: 73502

== ENCOUNTER → 2022-07-19 14:45 | Outpatient (BNVA) | payer MEDICARE, MEDICAID, SELFPAY | PROVIDERS: PCP Family Medicine; Referring Provider Family Medicine | DX: Z47.1 Aftercare following joint replacement surgery (principal); Z96.642 Presence of left artificial hip joint ==

== ENCOUNTER 2023-07-04 16:02 | Outpatient (CLI) | payer MEDICARE, MEDICAID, SELFPAY ==
--- NOTE | 2023-07-04 15:27 | DI.RAD_ITS ---
Exam(s) XR HIP LT AP LAT ONLY EXAM: XR HIP LT AP LAT ONLY CLINICAL HISTORY: YEARLY F/U LEFT JER. TECHNIQUE: 2D digital imaging was performed. Two views. COMPARISON: CR XR HIP LT COMPLETE AP PELVIS from 06/21/2022 FINDINGS: BONES: No acute fracture is present. No bony destructive lesion is seen. JOINTS: No dislocation present. There has been no change in the appearance of the left hip prosthesis . SOFT TISSUE: Normal. IMPRESSION: Stable appearance of left hip prosthesis. DATA REPOSITORY: RADIATION DOSE DELIVERED:
--- NOTE | 2023-07-04 15:51 | DI.RAD_ITS ---
Exam(s) XR WRIST RT COMPLETE EXAM: XR WRIST RT COMPLETE CLINICAL HISTORY: wrist pain. TECHNIQUE: 2D digital imaging was performed. Three views. COMPARISON: No exams were available for comparison FINDINGS: BONES: No acute fracture is present. No bony destructive lesion is seen. Deformity of the distal ul na could be related to an old fracture. Calcification near the ulnar styloid could be related to james or trauma. JOINTS: The carpal bones are normally aligned. SOFT TISSUE: Soft tissue prominence of the medial soft tissues, at the level of the triquetrum. No a ssociated calcifications. IMPRESSION: Medial soft tissue prominence could represent synovial cyst or ganglion. DATA REPOSITORY: RADIATION DOSE DELIVERED:
== END 2023-07-04 16:03 | disposition home or self-care (01) ==
LOC: DIORS 16:02
PROVIDERS: PCP Family Medicine; Referring Provider Family Medicine; Visit Provider Student in an Organized Health Care Education/Training Program
DX: Z47.1 Aftercare following joint replacement surgery; M67.431 Ganglion, right wrist; G56.01 Carpal tunnel syndrome, right upper limb; Z96.642 Presence of left artificial hip joint
CPT/HCPCS: 99213; 73110; 73502